=== PATIENT | female | born 1985 | race Hispanic/Latino ===

== ENCOUNTER 2021-12-31 10:45 | Inpatient (IN) | payer MEDICAID, OTHER ==
[2021-12-31 12:05] LABS: #Eosinphils 0.1 10x3/uL (0.0-0.5); #Monocytes 0.6 10x3/uL (0.0-1.1); #Neutrophils 10.3 10x3/uL (1.5-8.4); %Basophils 0.2 % (0.0-2.0); %Eosinophils 1.1 % (0.0-6.0); %Lymphocytes 4.5 % (18.0-47.0); %Monocytes 5.4 % (0.0-10.0); %Neutrophils 87.5 % (40.0-75.0); Hemoglobin 12.4 g/dL (12.0-15.5); Mean Corpuscular HGB CONC 33.5 g/dL (32.0-36.0); Mean Corpuscular Hemoglobin 27.1 pg (27.0-33.0); Platelet Count 196 10x3/uL (150-450); RBC Distribution Width 20.2 % (11.5-14.5); Red Blood Cell (RBC) Count 4.57 10x6/uL (3.90-5.03); White Blood Cell (WBC) Count 11.7 10x3/uL (3.5-10.5)
[2021-12-31 12:06] LABS: ALT (SGPT) 29 U/L (8-55); AST (SGOT) 22 U/L (5-34); Albumin 3.4 g/dL (3.5-5.0); Alkaline Phosphatase 95 U/L (40-110); Anion Gap 13 mmol/L (10-20); BUN (Urea Nitrogen) 6 mg/dL (7.0-18.7); Bilirubin, Total 0.4 mg/dL (0.2-1.2); Calc. Creatinine Clearance 0 mL/min (70-130); Calcium 8.6 mg/dL (7.8-10.44); Carbon Dioxide 18 mmol/L (22-29); Chloride 104 mmol/L (98-107); Globulin 3.4 g/dL (2.4-3.5); Glucose 184 mg/dL (70-105); Potassium 3.4 mmol/L (3.5-5.1); Protein, Total 6.8 g/dL (6.0-8.3); Sodium 132 mmol/L (136-145)
[2021-12-31] MEDS ORDERED: Acetaminophen 325 MG TAB ONE ×2 (12:22→16:38)
[2021-12-31 13:39] LABS: Bilirubin Neg (Negative); Blood, Urine Negative (Negative); Clarity Clear (Clear); Glucose, Urine (Dipstick) >=1000 mg/dL (Negative); Ketone, Urine Negative (Negative); Leukocyte Negative (Negative); Nitrite Negative (Negative); Protein, Urine (Dipstick) Negative (Neg-Trace); Urobilinogen Normal mg/dL (Less than 2)
[2021-12-31 14:58] LABS: Lactic Acid 0.7 mmol/L (0.5-2.2)
[2021-12-31] MEDS ORDERED: Cefepime 2 GM VIAL ONE (15:13)
[2021-12-31 16:10] LABS: SARS-CoV-2 NAA Rapid Test Not Detected (NotDetected)
[2021-12-31] MEDS ORDERED: Guaifenesin DM 100-10/5 ML UDCUP PO PRN (17:31)
[2021-12-31] MEDS ORDERED: Dextrose 50% Abboject 50 ML SYRINGE SLOW IVP PRN (17:32)
[2021-12-31] MEDS ORDERED: Dextrose 5% in Water 1,000 ML IV PRN (17:32)
[2021-12-31] MEDS ORDERED: Lactated Ringer's 1,000 ML IV SCH (17:45)
[2021-12-31 18:39] VITALS: BMI 22.6
[2021-12-31] MEDS: Acetaminophen 325 MG TAB PO PRN (20:20)
[2021-12-31] MEDS: NPH, Human Insulin Isophane 300 UNIT/3 ML VIAL SC SCH (20:38)
[2022-01-01] MEDS: Acetaminophen 325 MG TAB PO PRN ×2 (02:00→07:28)
[2022-01-01] MEDS: Cefepime 1 GM in Sodium Chloride 0.9% 100 ML IVPB SCH ×2 (03:01→14:08)
[2022-01-01 04:43] LABS: #Eosinphils 0.1 10x3/uL (0.0-0.5); #Monocytes 0.6 10x3/uL (0.0-1.1); #Neutrophils 5.5 10x3/uL (1.5-8.4); %Basophils 0.1 % (0.0-2.0); %Eosinophils 0.7 % (0.0-6.0); %Lymphocytes 7.9 % (18.0-47.0); %Monocytes 8.8 % (0.0-10.0); Hemoglobin 10.9 g/dL (12.0-15.5); Mean Corpuscular HGB CONC 32.9 g/dL (32.0-36.0); Mean Corpuscular Hemoglobin 26.8 pg (27.0-33.0); Mean Corpuscular Volume 81.5 fl (81.6-98.3); Mean Platelet Volume 9.8 fl (7.4-10.4); Platelet Count 181 10x3/uL (150-450); RBC Distribution Width 20.4 % (11.5-14.5); Red Blood Cell (RBC) Count 4.06 10x6/uL (3.90-5.03); White Blood Cell (WBC) Count 6.8 10x3/uL (3.5-10.5)
[2022-01-01 04:49] LABS: Anion Gap 12 mmol/L (10-20); BUN (Urea Nitrogen) Less than 4 mg/dL (7.0-18.7); Calc. Creatinine Clearance 162 mL/min (70-130); Calcium 7.8 mg/dL (7.8-10.44); Carbon Dioxide 17 mmol/L (22-29); Chloride 109 mmol/L (98-107); Glucose 127 mg/dL (70-105); Magnesium 1.6 mg/dL (1.6-2.6); Potassium 3.2 mmol/L (3.5-5.1); Sodium 135 mmol/L (136-145)
[2022-01-01] MEDS: Enoxaparin Sodium 40 MG/0.4 ML SYRINGE SC SCH (07:28)
[2022-01-01] MEDS: Prenatal Vitamin 1 TAB PO SCH (07:28)
[2022-01-01] MEDS: HumaLOG 300 UNITS/3 ML VIAL SC SCH (08:05)
[2022-01-01] MEDS: NPH, Human Insulin Isophane 300 UNIT/3 ML VIAL SC SCH ×2 (08:06→20:53)
[2022-01-01] MEDS ORDERED: HumaLOG 300 UNITS/3 ML VIAL SC SCH (14:00)
[2022-01-01] MEDS ORDERED: Dextrose 50% Abboject 50 ML SYRINGE SLOW IVP PRN (14:50)
[2022-01-01] MEDS ORDERED: HumaLOG 300 UNITS/3 ML VIAL SC PRN ×2 (14:50)
[2022-01-01] MEDS ORDERED: Dextrose 5% in Water 1,000 ML IV PRN (14:50)
[2022-01-01] MEDS ORDERED: Potassium Chloride 20 MEQ TAB PO SCH (16:15)
[2022-01-02] MEDS: Cefepime 1 GM in Sodium Chloride 0.9% 100 ML IVPB SCH (03:07)
[2022-01-02 04:20] LABS: #Monocytes 0.6 10x3/uL (0.0-1.1); #Neutrophils 2.8 10x3/uL (1.5-8.4); %Basophils 0.6 % (0.0-2.0); %Eosinophils 0.9 % (0.0-6.0); %Lymphocytes 23.3 % (18.0-47.0); %Monocytes 13.6 % (0.0-10.0); %Neutrophils 59.9 % (40.0-75.0); Hemoglobin 12.2 g/dL (12.0-15.5); Mean Corpuscular HGB CONC 33.4 g/dL (32.0-36.0); Mean Corpuscular Hemoglobin 27.1 pg (27.0-33.0); Mean Corpuscular Volume 81.1 fl (81.6-98.3); Mean Platelet Volume 10.4 fl (7.4-10.4); Platelet Count 202 10x3/uL (150-450); RBC Distribution Width 20.9 % (11.5-14.5); White Blood Cell (WBC) Count 4.6 10x3/uL (3.5-10.5)
[2022-01-02 04:35] LABS: Anion Gap 11 mmol/L (10-20); BUN (Urea Nitrogen) 7 mg/dL (7.0-18.7); Calc. Creatinine Clearance 143 mL/min (70-130); Carbon Dioxide 21 mmol/L (22-29); Chloride 108 mmol/L (98-107); Glucose 121 mg/dL (70-105); Potassium 3.5 mmol/L (3.5-5.1); Sodium 136 mmol/L (136-145)
[2022-01-02 05:28] VITALS: BP 91/52
[2022-01-02 07:11] VITALS: TEMP 97.4
[2022-01-02] MEDS: Prenatal Vitamin 1 TAB PO SCH (08:14)
[2022-01-02] MEDS: Enoxaparin Sodium 40 MG/0.4 ML SYRINGE SC SCH (08:14)
[2022-01-02] MEDS: HumaLOG 300 UNITS/3 ML VIAL SC SCH (08:18)
[2022-01-02] MEDS: NPH, Human Insulin Isophane 300 UNIT/3 ML VIAL SC SCH (08:19)
== END 2022-01-02 14:31 | disposition home or self-care (01) | DRG 831 ==
LOC: CSHERS 10:45 → CSHTELE 18:14
PROVIDERS: ADMIT Internal Medicine; ATTEND Internal Medicine
DX: O98.812 Other maternal infectious and parasitic diseases complicating pregnancy, second trimester (principal); A41.89 Other specified sepsis; O24.112 Pre-existing type 2 diabetes mellitus, in pregnancy, second trimester; E87.1 Hypo-osmolality and hyponatremia; Z3A.16 16 weeks gestation of pregnancy; O99.282 Endocrine, nutritional and metabolic diseases complicating pregnancy, second trimester; J10.1 Influenza due to other identified influenza virus with other respiratory manifestations; O99.512 Diseases of the respiratory system complicating pregnancy, second trimester; Z20.822 Contact with and (suspected) exposure to COVID-19; Z79.4 Long term (current) use of insulin; Z79.899 Other long term (current) drug therapy; E87.6 Hypokalemia
CPT/HCPCS: 36415; 36416; 71045; 80048; 80053; 81003; 83605; 83735; 84145; 84443; 85025; 87040; 87633; 87804; 93005; 94760; 96365; J0692; J1650; J1815; J3490; J7120; U0002

== ENCOUNTER 2022-01-11 11:54 | Emergency (ER) | payer MEDICAID, OTHER, SELFPAY ==
[2022-01-11 13:12] LABS: #Eosinphils 0.1 10x3/uL (0.0-0.5); #Monocytes 0.5 10x3/uL (0.0-1.1); #Neutrophils 6.3 10x3/uL (1.5-8.4); %Basophils 0.2 % (0.0-2.0); %Eosinophils 1.1 % (0.0-6.0); %Lymphocytes 17.2 % (18.0-47.0); %Monocytes 6.1 % (0.0-10.0); %Neutrophils 74.1 % (40.0-75.0); Hemoglobin 11.3 g/dL (12.0-15.5); Mean Corpuscular HGB CONC 33.3 g/dL (32.0-36.0); Mean Corpuscular Hemoglobin 27.2 pg (27.0-33.0); Mean Corpuscular Volume 81.5 fl (81.6-98.3); Mean Platelet Volume 10.3 fl (7.4-10.4); Platelet Count 255 10x3/uL (150-450); RBC Distribution Width 18.9 % (11.5-14.5); Red Blood Cell (RBC) Count 4.16 10x6/uL (3.90-5.03); White Blood Cell (WBC) Count 8.5 10x3/uL (3.5-10.5)
[2022-01-11 13:15] LABS: Bilirubin Neg (Negative); Blood, Urine Negative (Negative); Clarity Clear (Clear); Glucose, Urine (Dipstick) >=1000 mg/dL (Negative); Ketone, Urine Negative (Negative); Leukocyte 25 (Negative); Nitrite Negative (Negative); Protein, Urine (Dipstick) 15 mg/dl (Neg-Trace); Specific Gravity, Urine 1.015 (1.002-1.036); Urobilinogen Normal mg/dL (Less than 2)
[2022-01-11 13:23] LABS: Bacteria/HPF 1+ HPF (None Seen); RBC/HPF 0-3 HPF (0-3); WBC/HPF 0-3 HPF (0-3)
== END 2022-01-11 15:04 | disposition home or self-care (01) ==
LOC: CSHERS 11:54 → CSHLD/OP 12:15 → EDSTATUS 12:16 → CSHERS 15:04
DX: O23.42 Unspecified infection of urinary tract in pregnancy, second trimester (principal); O24.912 Unspecified diabetes mellitus in pregnancy, second trimester; Z79.4 Long term (current) use of insulin; Z3A.19 19 weeks gestation of pregnancy
CPT/HCPCS: 36416; 76815; 81003; 81015; 85025; 86900; 86901; 87086